=== PATIENT | female | born 1950 | race Caucasian/White ===

== ENCOUNTER 2022-11-16 16:08 | Inpatient (IN) | payer OTHER ==
[2022-11-16] MEDS ORDERED: ACETAMINOPHEN 1000 MG/100 ML BAG IVPB ONE (17:31)
[2022-11-16] MEDS ORDERED: ACETAMINOPHEN INJECTION 100 ML IVPB ONE (17:43)
[2022-11-16 18:24] LABS: BASO % 0.9 % (0-2.0); EOS % 2.7 % (0-4.5); HEMATOCRIT 32.5 % (32.4-45.2); HEMOGLOBIN 10.6 GM/dL (10.7-15.3); LYMPH % 14.5 % (8-40); MCH 29.2 pg (25.7-33.7); MCHC 32.5 g/dl (32.0-36.0); MEAN CELL VOLUME 89.9 fl (80-96); MONO % 9.6 % (3.8-10.2); NEUT % 72.3 % (42.8-82.8); PLATELET COUNT 416 10^3/uL (134-434); RBC 3.62 M/mm3 (3.60-5.2); RDW 17.3 % (11.6-15.6); WHITE BLOOD COUNT 8.6 K/mm3 (4.0-10.0)
[2022-11-16 18:42] LABS: ALBUMIN 2.7 g/dl (3.4-5.0); CALCIUM 9.5 mg/dL (8.5-10.1)
[2022-11-16 18:43] LABS: BLOOD UREA NITROGEN 17.1 mg/dL (7-18)
[2022-11-16 18:46] LABS: CREATININE 0.6 mg/dL (0.55-1.3)
[2022-11-16 18:47] LABS: BILIRUBIN,TOTAL 0.5 mg/dL (0.2-1); TOT PROT 7.5 g/dl (6.4-8.2)
[2022-11-16 22:59] LABS: CALCIUM 8.7 mg/dL (8.5-10.1)
[2022-11-16 23:00] LABS: BLOOD UREA NITROGEN 17.1 mg/dL (7-18)
[2022-11-16 23:04] LABS: CREATININE 0.7 mg/dL (0.55-1.3)
[2022-11-17] MEDS ORDERED: ACETAMINOPHEN 325 MG TABLET (FP) PO PRN (01:15)
[2022-11-17] MEDS ORDERED: ALBUTEROL SO4 HFA INHALER IH PRN (01:20)
[2022-11-17] MEDS ORDERED: REMDESIVIR 200 MG in SODIUM CHLORIDE 250 ML IVPB ONE (04:00)
[2022-11-17] MEDS ORDERED: HYDROCHLOROTHIAZIDE 12.5 MG CAPSULE (FP) PO SCH (10:00)
[2022-11-17] MEDS ORDERED: PATIENT'S OWN MEDICATION (NON-FORMULARY) (Candesartan/Hydrochlorothiazid [Candesartan-Hctz PO SCH (10:00)
[2022-11-17] MEDS ORDERED: ATENOLOL 50 MG TABLET (FP) PO SCH (10:00)
[2022-11-17 10:11] LABS: BASO % 0.7 % (0-2.0); EOS % 3.5 % (0-4.5); HEMATOCRIT 30.5 % (32.4-45.2); HEMOGLOBIN 9.8 GM/dL (10.7-15.3); LYMPH % 14.3 % (8-40); MCHC 32.2 g/dl (32.0-36.0); MEAN CELL VOLUME 90.1 fl (80-96); MEAN PLT VOLUME 6.7 fl (7.5-11.1); MONO % 10.1 % (3.8-10.2); NEUT % 71.4 % (42.8-82.8); PLATELET COUNT 268 10^3/uL (134-434); RBC 3.38 M/mm3 (3.60-5.2); RDW 17.4 % (11.6-15.6); WHITE BLOOD COUNT 6.3 K/mm3 (4.0-10.0)
[2022-11-17 10:51] LABS: BLOOD UREA NITROGEN 15.8 mg/dL (7-18); CALCIUM 8.8 mg/dL (8.5-10.1)
[2022-11-17 10:52] LABS: ALBUMIN 2.4 g/dl (3.4-5.0); MAGNESIUM 1.9 mg/dL (1.8-2.4)
[2022-11-17 10:56] LABS: BILIRUBIN,TOTAL 0.3 mg/dL (0.2-1); CREATININE 0.6 mg/dL (0.55-1.3); PHOSPHOROUS 3.6 mg/dL (2.5-4.9); TOT PROT 6.4 g/dl (6.4-8.2)
[2022-11-17 11:14] LABS: URINE APPEARANCE CLEAR; URINE BILIRUBIN NEGATIVE (NEGATIVE); URINE COLOR YELLOW; URINE GLUCOSE (UA) NEGATIVE (NEGATIVE); URINE KETONE NEGATIVE (NEGATIVE); URINE LEUK ESTERASE NEGATIVE (NEGATIVE); URINE NITRITE NEGATIVE (NEGATIVE); URINE PROTEIN NEGATIVE (NEGATIVE); URINE UROBILINOGEN 0.2 mg/dL (0.2-1.0)
[2022-11-17] MEDS: amLODIPine BESYLATE 5 MG TABLET (FP) PO SCH (11:33)
[2022-11-17] MEDS: LOSARTAN POTASSIUM 50 MG TABLET PO SCH (11:33)
[2022-11-17] MEDS: ENOXAPARIN NA (PORCINE) 40 MG/0.4 ML DISP.SYRIN SQ SCH (11:39)
[2022-11-17] MEDS: MULTIVITAMINS THER W-MINERALS COMBO TABLET (FP) PO SCH (11:39)
[2022-11-17] MEDS: ATENOLOL 50 MG TABLET (FP) PO SCH (22:53)
[2022-11-18 08:14] LABS: CARCINOEMBRYONIC ANTIGEN < 0.6 ng/mL (0.0-4.7)
[2022-11-18] MEDS: ATENOLOL 50 MG TABLET (FP) PO SCH (10:00)
[2022-11-18] MEDS: LOSARTAN POTASSIUM 50 MG TABLET PO SCH (10:25)
[2022-11-18] MEDS: REMDESIVIR 100 MG in SODIUM CHLORIDE 250 ML IVPB SCH (10:25)
[2022-11-18] MEDS: MULTIVITAMINS THER W-MINERALS COMBO TABLET (FP) PO SCH (10:27)
[2022-11-18] MEDS: amLODIPine BESYLATE 5 MG TABLET (FP) PO SCH (10:27)
[2022-11-18] MEDS: ENOXAPARIN NA (PORCINE) 40 MG/0.4 ML DISP.SYRIN SQ SCH (10:28)
[2022-11-18 12:19] VITALS: BMI 25.5
[2022-11-19 10:42] LABS: BASO % 0.5 % (0-2.0); EOS % 1.6 % (0-4.5); HEMATOCRIT 31.2 % (32.4-45.2); HEMOGLOBIN 10.6 GM/dL (10.7-15.3); LYMPH % 15.2 % (8-40); MCH 30.3 pg (25.7-33.7); MEAN CELL VOLUME 89.1 fl (80-96); MEAN PLT VOLUME 6.8 fl (7.5-11.1); MONO % 7.6 % (3.8-10.2); NEUT % 75.1 % (42.8-82.8); PLATELET COUNT 398 10^3/uL (134-434); RBC 3.51 M/mm3 (3.60-5.2); RDW 17.3 % (11.6-15.6)
[2022-11-19 10:43] LABS: INR 1.35 (0.83-1.09); PROTHROMBIN TIME (PATIENT) 15.6 SEC (9.7-13.0)
[2022-11-19] MEDS: MULTIVITAMINS THER W-MINERALS COMBO TABLET (FP) PO SCH (10:45)
[2022-11-19 10:46] LABS: ACTIVATED PTT 31.6 SECONDS (25.2-36.5)
[2022-11-19 11:37] LABS: BLOOD UREA NITROGEN 21.2 mg/dL (7-18)
[2022-11-19 11:38] LABS: CALCIUM 9.1 mg/dL (8.5-10.1)
[2022-11-19 11:39] LABS: MAGNESIUM 2.2 mg/dL (1.8-2.4)
[2022-11-19 11:40] LABS: PHOSPHOROUS 3.4 mg/dL (2.5-4.9)
[2022-11-19 11:41] LABS: CREATININE 1.1 mg/dL (0.55-1.3)
[2022-11-19] MEDS: LOSARTAN POTASSIUM 50 MG TABLET PO SCH (12:20)
[2022-11-19] MEDS: amLODIPine BESYLATE 5 MG TABLET (FP) PO SCH (12:20)
[2022-11-19] MEDS: REMDESIVIR 100 MG in SODIUM CHLORIDE 250 ML IVPB SCH (12:21)
[2022-11-19] MEDS: ATENOLOL 50 MG TABLET (FP) PO SCH (12:39)
[2022-11-20] MEDS: MULTIVITAMINS THER W-MINERALS COMBO TABLET (FP) PO SCH (09:30)
[2022-11-20] MEDS: amLODIPine BESYLATE 5 MG TABLET (FP) PO SCH (09:30)
[2022-11-20] MEDS: LOSARTAN POTASSIUM 50 MG TABLET PO SCH (09:30)
[2022-11-20] MEDS: ATENOLOL 50 MG TABLET (FP) PO SCH (09:31)
[2022-11-20] MEDS: ENOXAPARIN NA (PORCINE) 40 MG/0.4 ML DISP.SYRIN SQ SCH (09:31)
[2022-11-20 11:02] LABS: BASO % 0.5 % (0-2.0); EOS % 2.9 % (0-4.5); HEMATOCRIT 30.1 % (32.4-45.2); HEMOGLOBIN 10.1 GM/dL (10.7-15.3); LYMPH % 12.4 % (8-40); MCH 30.1 pg (25.7-33.7); MCHC 33.7 g/dl (32.0-36.0); MEAN CELL VOLUME 89.2 fl (80-96); MONO % 7.6 % (3.8-10.2); NEUT % 76.6 % (42.8-82.8); PLATELET COUNT 327 10^3/uL (134-434); RBC 3.37 M/mm3 (3.60-5.2); RDW 17.3 % (11.6-15.6); WHITE BLOOD COUNT 8.5 K/mm3 (4.0-10.0)
[2022-11-20 11:19] LABS: CALCIUM 9.1 mg/dL (8.5-10.1)
[2022-11-20 11:20] LABS: ALBUMIN 2.6 g/dl (3.4-5.0); BLOOD UREA NITROGEN 20.1 mg/dL (7-18); MAGNESIUM 2.2 mg/dL (1.8-2.4)
[2022-11-20 11:23] LABS: CREATININE 0.9 mg/dL (0.55-1.3); PHOSPHOROUS 3.4 mg/dL (2.5-4.9)
[2022-11-20 11:24] LABS: BILIRUBIN,TOTAL 0.4 mg/dL (0.2-1)
[2022-11-20 11:25] LABS: TOT PROT 6.8 g/dl (6.4-8.2)
[2022-11-20] MEDS ORDERED: PEG 3350/NA SULF BICARB CL/KCL 4000 ML SOLN.RECON PO ONE (15:32)
[2022-11-20] MEDS ORDERED: BISACODYL 5 MG TABLET.DR (FP) PO ONE (20:00)
[2022-11-20] MEDS: POLYETHYLENE GLYCOL (HEALTHYLAX) 3350 17 GM PACKET PO SCH (22:14)
[2022-11-21] MEDS: amLODIPine BESYLATE 5 MG TABLET (FP) PO SCH (09:26)
[2022-11-21] MEDS: LOSARTAN POTASSIUM 50 MG TABLET PO SCH (09:33)
[2022-11-21] MEDS: POLYETHYLENE GLYCOL (HEALTHYLAX) 3350 17 GM PACKET PO SCH ×2 (10:24→22:09)
[2022-11-21] MEDS: MULTIVITAMINS THER W-MINERALS COMBO TABLET (FP) PO SCH (10:24)
[2022-11-21] MEDS: ATENOLOL 50 MG TABLET (FP) PO SCH (10:25)
[2022-11-21 10:33] LABS: BASO % 0.5 % (0-2.0); EOS % 1.9 % (0-4.5); HEMATOCRIT 31.8 % (32.4-45.2); HEMOGLOBIN 10.6 GM/dL (10.7-15.3); LYMPH % 14.5 % (8-40); MCH 29.6 pg (25.7-33.7); MCHC 33.5 g/dl (32.0-36.0); MEAN CELL VOLUME 88.6 fl (80-96); MEAN PLT VOLUME 6.7 fl (7.5-11.1); MONO % 6.5 % (3.8-10.2); NEUT % 76.6 % (42.8-82.8); PLATELET COUNT 388 10^3/uL (134-434); RBC 3.59 M/mm3 (3.60-5.2); RDW 17.3 % (11.6-15.6); WHITE BLOOD COUNT 9.7 K/mm3 (4.0-10.0)
[2022-11-21 10:47] LABS: INR 1.43 (0.83-1.09); PROTHROMBIN TIME (PATIENT) 16.5 SEC (9.7-13.0)
[2022-11-21 11:04] LABS: BLOOD UREA NITROGEN 17.1 mg/dL (7-18)
[2022-11-21 11:07] LABS: CREATININE 0.8 mg/dL (0.55-1.3)
[2022-11-21] MEDS: PANTOPRAZOLE 40 MG TABLET PO SCH (22:09)
[2022-11-21] MEDS: MAG HYDROX/AL HYDROX/SIMETH 30 ML UNIT-DOSE CUP PO SCH (22:09)
[2022-11-22] MEDS: MULTIVITAMINS THER W-MINERALS COMBO TABLET (FP) PO SCH (09:51)
[2022-11-22] MEDS: MAG HYDROX/AL HYDROX/SIMETH 30 ML UNIT-DOSE CUP PO SCH ×2 (09:51→21:40)
[2022-11-22] MEDS: POLYETHYLENE GLYCOL (HEALTHYLAX) 3350 17 GM PACKET PO SCH ×2 (09:52→21:40)
[2022-11-22] MEDS: PANTOPRAZOLE 40 MG TABLET PO SCH ×2 (09:52→21:40)
[2022-11-22] MEDS ORDERED: PANTOPRAZOLE 40 MG TABLET PO SCH (10:00)
[2022-11-22 10:03] LABS: HEMATOCRIT 30.4 % (32.4-45.2); MCH 29.3 pg (25.7-33.7); MCHC 33.1 g/dl (32.0-36.0); MEAN CELL VOLUME 88.6 fl (80-96); PLATELET COUNT 344 10^3/uL (134-434); RBC 3.43 M/mm3 (3.60-5.2); RDW 17.4 % (11.6-15.6)
[2022-11-22 10:13] LABS: CALCIUM 8.6 mg/dL (8.5-10.1)
[2022-11-22 10:14] LABS: BLOOD UREA NITROGEN 12.6 mg/dL (7-18)
[2022-11-22 10:17] LABS: CREATININE 0.8 mg/dL (0.55-1.3)
[2022-11-22] MEDS ORDERED: PEG 3350/NA SULF BICARB CL/KCL 4000 ML SOLN.RECON PO ONE (13:00)
[2022-11-22] MEDS: metroNIDAZOLE 500 MG TABLET PO SCH ×2 (13:06→14:07)
[2022-11-22] MEDS: NEOMYCIN SO4 500 MG TABLET PO SCH ×2 (13:06→14:07)
[2022-11-22] MEDS: ATENOLOL 50 MG TABLET (FP) PO SCH (13:06)
[2022-11-22] MEDS: LOSARTAN POTASSIUM 50 MG TABLET PO SCH (13:24)
[2022-11-22] MEDS: amLODIPine BESYLATE 5 MG TABLET (FP) PO SCH (13:24)
[2022-11-23] MEDS: ATENOLOL 50 MG TABLET (FP) PO SCH (10:49)
[2022-11-23] MEDS: PANTOPRAZOLE 40 MG TABLET PO SCH ×2 (10:49→21:16)
[2022-11-23] MEDS: MAG HYDROX/AL HYDROX/SIMETH 30 ML UNIT-DOSE CUP PO SCH ×3 (10:49→21:32)
[2022-11-23] MEDS: MULTIVITAMINS THER W-MINERALS COMBO TABLET (FP) PO SCH (10:49)
[2022-11-23] MEDS: LOSARTAN POTASSIUM 50 MG TABLET PO SCH (10:49)
[2022-11-23] MEDS: POLYETHYLENE GLYCOL (HEALTHYLAX) 3350 17 GM PACKET PO SCH ×2 (10:49→21:17)
[2022-11-23] MEDS: amLODIPine BESYLATE 5 MG TABLET (FP) PO SCH (10:50)
[2022-11-23 11:28] LABS: HEMATOCRIT 31.5 % (32.4-45.2); HEMOGLOBIN 10.4 GM/dL (10.7-15.3); MCH 29.7 pg (25.7-33.7); MCHC 33.1 g/dl (32.0-36.0); MEAN CELL VOLUME 89.7 fl (80-96); PLATELET COUNT 362 10^3/uL (134-434); RBC 3.52 M/mm3 (3.60-5.2); RDW 17.2 % (11.6-15.6); WHITE BLOOD COUNT 8.8 K/mm3 (4.0-10.0)
[2022-11-23 11:52] LABS: CALCIUM 8.7 mg/dL (8.5-10.1)
[2022-11-23 11:53] LABS: BLOOD UREA NITROGEN 11.1 mg/dL (7-18); MAGNESIUM 2.2 mg/dL (1.8-2.4)
[2022-11-23 11:56] LABS: CREATININE 0.8 mg/dL (0.55-1.3)
[2022-11-24] MEDS: POLYETHYLENE GLYCOL (HEALTHYLAX) 3350 17 GM PACKET PO SCH ×3 (09:28→21:09)
[2022-11-24] MEDS: MULTIVITAMINS THER W-MINERALS COMBO TABLET (FP) PO SCH (09:28)
[2022-11-24] MEDS: MAG HYDROX/AL HYDROX/SIMETH 30 ML UNIT-DOSE CUP PO SCH ×3 (09:29→21:09)
[2022-11-24] MEDS: PANTOPRAZOLE 40 MG TABLET PO SCH ×2 (09:29→21:08)
[2022-11-24] MEDS: LOSARTAN POTASSIUM 50 MG TABLET PO SCH (11:00)
[2022-11-24] MEDS: ATENOLOL 50 MG TABLET (FP) PO SCH (11:01)
[2022-11-24 11:42] LABS: HEMATOCRIT 26.6 % (32.4-45.2); MCH 30.2 pg (25.7-33.7); MCHC 33.8 g/dl (32.0-36.0); MEAN CELL VOLUME 89.3 fl (80-96); MEAN PLT VOLUME 6.8 fl (7.5-11.1); PLATELET COUNT 276 10^3/uL (134-434); RBC 2.98 M/mm3 (3.60-5.2); RDW 17.4 % (11.6-15.6); WHITE BLOOD COUNT 7.7 K/mm3 (4.0-10.0)
[2022-11-24 12:05] LABS: BLOOD UREA NITROGEN 14.3 mg/dL (7-18); CALCIUM 8.5 mg/dL (8.5-10.1)
[2022-11-24 12:08] LABS: CREATININE 0.7 mg/dL (0.55-1.3)
[2022-11-24 20:19] LABS: HEMATOCRIT 28.3 % (32.4-45.2); HEMOGLOBIN 9.4 GM/dL (10.7-15.3); MCH 29.7 pg (25.7-33.7); MCHC 33.1 g/dl (32.0-36.0); MEAN CELL VOLUME 89.6 fl (80-96); MEAN PLT VOLUME 6.9 fl (7.5-11.1); PLATELET COUNT 348 10^3/uL (134-434); RBC 3.15 M/mm3 (3.60-5.2); RDW 17.4 % (11.6-15.6); WHITE BLOOD COUNT 8.6 K/mm3 (4.0-10.0)
[2022-11-25] MEDS ORDERED: AMINO ACIDS/PROTEIN HYDROLYS 30 ML LIQUID.PKT PO SCH (08:00)
[2022-11-25] MEDS: POLYETHYLENE GLYCOL (HEALTHYLAX) 3350 17 GM PACKET PO SCH ×4 (09:27→23:14)
[2022-11-25] MEDS: PANTOPRAZOLE 40 MG TABLET PO SCH ×2 (09:27→23:09)
[2022-11-25] MEDS: MULTIVITAMINS THER W-MINERALS COMBO TABLET (FP) PO SCH (09:27)
[2022-11-25] MEDS: MAG HYDROX/AL HYDROX/SIMETH 30 ML UNIT-DOSE CUP PO SCH ×4 (09:27→23:15)
[2022-11-25 10:37] LABS: HEMATOCRIT 29.1 % (32.4-45.2); HEMOGLOBIN 9.8 GM/dL (10.7-15.3); MCH 30.2 pg (25.7-33.7); MCHC 33.6 g/dl (32.0-36.0); MEAN CELL VOLUME 89.9 fl (80-96); MEAN PLT VOLUME 7.1 fl (7.5-11.1); PLATELET COUNT 309 10^3/uL (134-434); RBC 3.24 M/mm3 (3.60-5.2); RDW 17.6 % (11.6-15.6); WHITE BLOOD COUNT 8.6 K/mm3 (4.0-10.0)
[2022-11-25 11:07] LABS: CALCIUM 8.7 mg/dL (8.5-10.1)
[2022-11-25 11:08] LABS: BLOOD UREA NITROGEN 15.3 mg/dL (7-18)
[2022-11-25 11:11] LABS: CREATININE 0.9 mg/dL (0.55-1.3)
[2022-11-25] MEDS ORDERED: SODIUM POLYSTYRENE SULFONATE 15 GM/60 ML BOTTLE PO ONE (14:15)
[2022-11-26 09:16] LABS: ALBUMIN 2.2 g/dl (3.4-5.0); BLOOD UREA NITROGEN 14.4 mg/dL (7-18); CALCIUM 8.2 mg/dL (8.5-10.1)
[2022-11-26 09:19] LABS: CREATININE 0.7 mg/dL (0.55-1.3)
[2022-11-26 09:20] LABS: BILIRUBIN,TOTAL 0.3 mg/dL (0.2-1)
[2022-11-26] MEDS: MAG HYDROX/AL HYDROX/SIMETH 30 ML UNIT-DOSE CUP PO SCH ×4 (10:46→23:59)
[2022-11-26] MEDS: MULTIVITAMINS THER W-MINERALS COMBO TABLET (FP) PO SCH (10:47)
[2022-11-26] MEDS: POLYETHYLENE GLYCOL (HEALTHYLAX) 3350 17 GM PACKET PO SCH ×4 (10:47→23:58)
[2022-11-26] MEDS: PANTOPRAZOLE 40 MG TABLET PO SCH ×2 (10:47→21:39)
[2022-11-26] MEDS: metroNIDAZOLE 250 MG TABLET PO SCH ×3 (14:12→23:58)
[2022-11-26] MEDS: CLARITHROMYCIN 500 MG TABLET (UD) PO SCH (23:58)
[2022-11-27] MEDS: metroNIDAZOLE 250 MG TABLET PO SCH ×5 (00:05→22:29)
[2022-11-27] MEDS: CLARITHROMYCIN 500 MG TABLET (UD) PO SCH ×3 (00:06→22:30)
[2022-11-27] MEDS: MAG HYDROX/AL HYDROX/SIMETH 30 ML UNIT-DOSE CUP PO SCH ×5 (00:07→22:44)
[2022-11-27 09:55] LABS: HEMATOCRIT 23.9 % (32.4-45.2); MCHC 33.4 g/dl (32.0-36.0); MEAN CELL VOLUME 89.7 fl (80-96); PLATELET COUNT 204 10^3/uL (134-434); RBC 2.66 M/mm3 (3.60-5.2); WHITE BLOOD COUNT 5.5 K/mm3 (4.0-10.0)
[2022-11-27] MEDS: PANTOPRAZOLE 40 MG TABLET PO SCH ×3 (10:14→22:44)
[2022-11-27] MEDS: MULTIVITAMINS THER W-MINERALS COMBO TABLET (FP) PO SCH (10:14)
[2022-11-27] MEDS: POLYETHYLENE GLYCOL (HEALTHYLAX) 3350 17 GM PACKET PO SCH ×3 (10:15→22:44)
[2022-11-27 10:16] LABS: CALCIUM 8.2 mg/dL (8.5-10.1)
[2022-11-27 10:17] LABS: BLOOD UREA NITROGEN 15.7 mg/dL (7-18); MAGNESIUM 1.9 mg/dL (1.8-2.4)
[2022-11-27 10:20] LABS: CREATININE 0.8 mg/dL (0.55-1.3); PHOSPHOROUS 2.6 mg/dL (2.5-4.9)
[2022-11-28] MEDS: metroNIDAZOLE 250 MG TABLET PO SCH ×4 (05:06→22:02)
[2022-11-28] MEDS ORDERED: ONDANSETRON 4 MG/2 ML VIAL IVPUSH ONE (09:50)
[2022-11-28] MEDS: POLYETHYLENE GLYCOL (HEALTHYLAX) 3350 17 GM PACKET PO SCH ×2 (10:40→22:03)
[2022-11-28] MEDS: MAG HYDROX/AL HYDROX/SIMETH 30 ML UNIT-DOSE CUP PO SCH ×2 (10:40→22:03)
[2022-11-28] MEDS: CLARITHROMYCIN 500 MG TABLET (UD) PO SCH ×2 (10:40→22:05)
[2022-11-28] MEDS: PANTOPRAZOLE 40 MG TABLET PO SCH ×2 (10:41→22:03)
[2022-11-28] MEDS: MULTIVITAMINS THER W-MINERALS COMBO TABLET (FP) PO SCH (10:41)
[2022-11-28 11:04] LABS: HEMATOCRIT 26.1 % (32.4-45.2); HEMOGLOBIN 8.8 GM/dL (10.7-15.3); MCH 30.3 pg (25.7-33.7); MCHC 33.8 g/dl (32.0-36.0); MEAN CELL VOLUME 89.7 fl (80-96); MEAN PLT VOLUME 6.9 fl (7.5-11.1); PLATELET COUNT 261 10^3/uL (134-434); RBC 2.91 M/mm3 (3.60-5.2); RDW 17.2 % (11.6-15.6); WHITE BLOOD COUNT 8.8 K/mm3 (4.0-10.0)
[2022-11-28] MEDS: ACETAMINOPHEN 1000 MG/100 ML BAG IVPB ONE ×2 (11:25→11:51)
[2022-11-28 11:44] LABS: BLOOD UREA NITROGEN 15.8 mg/dL (7-18)
[2022-11-28 11:45] LABS: CALCIUM 8.2 mg/dL (8.5-10.1)
[2022-11-28 11:46] LABS: MAGNESIUM 1.8 mg/dL (1.8-2.4)
[2022-11-28 11:47] LABS: CREATININE 0.7 mg/dL (0.55-1.3)
[2022-11-28] MEDS: DEXTROSE 5%-0.45% SALINE 1,000 ML IV SCH ×2 (12:37→22:20)
[2022-11-28] MEDS ORDERED: ACETAMINOPHEN 325 MG TABLET (FP) PO PRN (22:46)
[2022-11-29] MEDS: POLYETHYLENE GLYCOL (HEALTHYLAX) 3350 17 GM PACKET PO SCH ×2 (05:22→10:43)
[2022-11-29] MEDS: MAG HYDROX/AL HYDROX/SIMETH 30 ML UNIT-DOSE CUP PO SCH ×2 (05:22→10:27)
[2022-11-29] MEDS: metroNIDAZOLE 250 MG TABLET PO SCH ×3 (05:23→13:46)
[2022-11-29] MEDS: MULTIVITAMINS THER W-MINERALS COMBO TABLET (FP) PO SCH (10:27)
[2022-11-29] MEDS: CLARITHROMYCIN 500 MG TABLET (UD) PO SCH (10:27)
[2022-11-29] MEDS: PANTOPRAZOLE 40 MG TABLET PO SCH (10:27)
[2022-11-29 11:19] LABS: HEMOGLOBIN 7.8 GM/dL (10.7-15.3); MCH 29.7 pg (25.7-33.7); MCHC 32.7 g/dl (32.0-36.0); MEAN CELL VOLUME 90.7 fl (80-96); MEAN PLT VOLUME 7.1 fl (7.5-11.1); PLATELET COUNT 234 10^3/uL (134-434); RBC 2.65 M/mm3 (3.60-5.2); RDW 17.5 % (11.6-15.6); WHITE BLOOD COUNT 8.2 K/mm3 (4.0-10.0)
[2022-11-29] MEDS ORDERED: ONDANSETRON 4 MG/2 ML VIAL IVPUSH ONE (11:30)
[2022-11-29 11:39] LABS: BLOOD UREA NITROGEN 15.3 mg/dL (7-18); CALCIUM 8.2 mg/dL (8.5-10.1); MAGNESIUM 1.8 mg/dL (1.8-2.4)
[2022-11-29 11:42] LABS: CREATININE 0.7 mg/dL (0.55-1.3)
[2022-11-29 11:43] LABS: PHOSPHOROUS 2.4 mg/dL (2.5-4.9)
[2022-11-29] MEDS ORDERED: SODIUM PHOSPHATE - 20 MM in SODIUM CHLORIDE 500 ML IVPB ONE (14:00)
[2022-11-29] MEDS ORDERED: CEFEPIME 1 GM in DEXTROSE 5%-WATER - 100 ML IVPB SCH ×2 (14:45→15:00)
[2022-11-29] MEDS ORDERED: CEFEPIME 1 GM in DEXTROSE 5%-WATER 100 ML IVPB SCH (15:00)
[2022-11-29] MEDS ORDERED: VANCOMYCIN 1 GRAM (PRE-DOCKED) 1,000 MG/250 ML BAG IVPB SCH (16:45)
[2022-11-29] MEDS ORDERED: VANCOMYCIN/WATER FOR INJ (PEG) 1,000 MG/200 ML BAG IVPB SCH (16:58)
[2022-11-29] MEDS ORDERED: PIPERACILLIN/TAZOB 4.5 GM 4.5 GM in DEXTROSE 5%-WATER 100 ML IVPB SCH (18:00)
[2022-11-29] MEDS ORDERED: ALBUMIN HUMAN 5% 250 ML IV SOLUTION IV ONE ×2 (18:00→18:15)
[2022-11-29] MEDS ORDERED: ROCURONIUM BROMIDE 50 MG/5 ML SYRINGE ONE ×2 (18:08→20:44)
[2022-11-29] MEDS ORDERED: PROPOFOL 20 ML ONE (18:08)
[2022-11-29] MEDS ORDERED: LIDOCAINE HCL/PF 2% SDV 5ML VIAL ONE (18:08)
[2022-11-29] MEDS ORDERED: ONDANSETRON 4 MG/2 ML VIAL ONE (18:08)
[2022-11-29] MEDS ORDERED: PHENYLEPHRINE HCL 10 MG/1 ML SINGLE DOSE VIAL ONE (18:08)
[2022-11-29] MEDS ORDERED: BUPIVACAINE HCL/PF 0.25% (2.5MG/ML) 10 ML VIAL ONE (18:30)
[2022-11-29] MEDS ORDERED: DEXAMETHASONE SOD PHOSPHATE 4 MG/1 ML VIAL ONE (18:34)
[2022-11-29] MEDS ORDERED: cefOXitin SODIUM 1 GM VIAL (RESTRICTED TO ID) IVPB ONE (20:11)
[2022-11-29] MEDS ORDERED: cefOXitin SODIUM 2 GM VIAL (RESTRICTED TO ID) IVPB ONE (20:11)
[2022-11-29] MEDS ORDERED: HYDROmorphone HCl 2 MG/ML VIAL ONE (20:25)
[2022-11-29] MEDS ORDERED: GLYCOPYRROLATE 0.2 MG/1 ML VIAL ONE (21:08)
[2022-11-29] MEDS ORDERED: NEOSTIGMINE METHYLSULFATE 0.5 MG/1 ML - 10 ML MDV ONE (21:08)
[2022-11-29] MEDS ORDERED: HEPARIN NA (PORCINE) 5,000 UNITS/ML 1ML VIAL SQ ONE (21:23)
[2022-11-29] MEDS ORDERED: ONDANSETRON 4 MG/2 ML VIAL IVPUSH PRN (22:15)
[2022-11-29] MEDS ORDERED: LACTATED RINGERS SOLUTION 1,000 ML IV SCH (22:15)
[2022-11-29] MEDS ORDERED: HYDROmorphone *PCA* 10MG/50ML DISP.SYRIN PCA SCH (22:15)
[2022-11-29] MEDS ORDERED: HYDROmorphone *PCA* 10MG/50ML DISP.SYRIN ONE (22:23)
[2022-11-29] MEDS ORDERED: ALBUTEROL SO4 HFA INHALER IH PRN (22:30)
[2022-11-29] MEDS ORDERED: SODIUM CHLORIDE 1,000 ML IV SCH (22:30)
[2022-11-29] MEDS ORDERED: AMINO ACIDS 4.25%/D5W 1,000 ML IV SCH (22:45)
[2022-11-29] MEDS ORDERED: CEFEPIME 2 GM in DEXTROSE 5%-WATER 100 ML IVPB SCH (23:00)
[2022-11-30] MEDS: CEFEPIME 2 GM in DEXTROSE 5%-WATER 100 ML IVPB SCH ×3 (05:56→21:40)
[2022-11-30] MEDS: AMINO ACIDS 4.25%/D5W 1,000 ML IV SCH ×3 (05:57→22:05)
[2022-11-30] MEDS ORDERED: LACTATED RINGERS SOLUTION 1000 ML INFUS.BAG IV ONE (06:47)
[2022-11-30 07:02] LABS: HEMATOCRIT 28.2 % (32.4-45.2); HEMOGLOBIN 9.3 GM/dL (10.7-15.3); MCH 28.6 pg (25.7-33.7); MCHC 32.9 g/dl (32.0-36.0); MEAN PLT VOLUME 7.1 fl (7.5-11.1); PLATELET COUNT 253 10^3/uL (134-434); RBC 3.24 M/mm3 (3.60-5.2); RDW 20.6 % (11.6-15.6); WHITE BLOOD COUNT 10.6 K/mm3 (4.0-10.0)
[2022-11-30 07:30] LABS: BLOOD UREA NITROGEN 15.6 mg/dL (7-18); CALCIUM 7.8 mg/dL (8.5-10.1); MAGNESIUM 1.7 mg/dL (1.8-2.4)
[2022-11-30 07:33] LABS: CREATININE 0.7 mg/dL (0.55-1.3); PHOSPHOROUS 3.4 mg/dL (2.5-4.9)
[2022-11-30] MEDS ORDERED: MAGNESIUM SULF 50% (8.12 MEQ/2 ML-1 GM VIAL) IVPB ONE (09:00)
[2022-11-30] MEDS: PANTOPRAZOLE SODIUM 40 MG VIAL IVPUSH SCH (09:36)
[2022-11-30] MEDS: HEPARIN NA (PORCINE) 5,000 UNITS/ML 1ML VIAL SQ SCH ×2 (09:36→21:40)
[2022-11-30] MEDS: ACETAMINOPHEN 1000 MG/100 ML BAG IVPB SCH ×2 (09:37→18:10)
[2022-11-30] MEDS: MUPIROCIN 2% TOPICAL OINTMENT FOR DECOLONIZATION NS SCH ×2 (10:00→21:40)
[2022-11-30] MEDS ORDERED: VANCOMYCIN/WATER FOR INJ (PEG) 1,000 MG/200 ML BAG IVPB SCH (17:00)
[2022-11-30] MEDS: CHLORHEXIDINE GLUCONATE 4% CLEANSER FOR DECOLONIZATION TP SCH (21:40)
[2022-12-01] MEDS: ACETAMINOPHEN 1000 MG/100 ML BAG IVPB SCH ×5 (00:30→23:59)
[2022-12-01] MEDS: CEFEPIME 2 GM in DEXTROSE 5%-WATER 100 ML IVPB SCH ×3 (06:00→21:30)
[2022-12-01 07:06] LABS: HEMATOCRIT 27.3 % (32.4-45.2); HEMOGLOBIN 9.2 GM/dL (10.7-15.3); MCH 29.3 pg (25.7-33.7); MCHC 33.7 g/dl (32.0-36.0); PLATELET COUNT 325 10^3/uL (134-434); RBC 3.14 M/mm3 (3.60-5.2); RDW 20.4 % (11.6-15.6); WHITE BLOOD COUNT 9.2 K/mm3 (4.0-10.0)
[2022-12-01 07:33] LABS: BLOOD UREA NITROGEN 23.2 mg/dL (7-18); CALCIUM 8.1 mg/dL (8.5-10.1); MAGNESIUM 1.9 mg/dL (1.8-2.4)
[2022-12-01 07:37] LABS: CREATININE 0.7 mg/dL (0.55-1.3)
[2022-12-01] MEDS ORDERED: SODIUM PHOSPHATE - 30 MM in SODIUM CHLORIDE 250 ML IVPB ONE (09:00)
[2022-12-01] MEDS: MUPIROCIN 2% TOPICAL OINTMENT FOR DECOLONIZATION NS SCH ×2 (09:23→21:30)
[2022-12-01] MEDS: HEPARIN NA (PORCINE) 5,000 UNITS/ML 1ML VIAL SQ SCH ×2 (09:24→21:30)
[2022-12-01] MEDS: PANTOPRAZOLE SODIUM 40 MG VIAL IVPUSH SCH (09:24)
[2022-12-01] MEDS: AMINO ACIDS 4.25%/D5W 1,000 ML IV SCH ×2 (11:16→22:42)
[2022-12-01] MEDS ORDERED: MAGNESIUM SULF 50% (8.12 MEQ/2 ML-1 GM VIAL) IVPB ONE (17:34)
[2022-12-01] MEDS ORDERED: MAGNESIUM SULF 50% (8.12 MEQ/2 ML-1 GM VIAL) ONE (18:00)
[2022-12-01] MEDS: CHLORHEXIDINE GLUCONATE 4% CLEANSER FOR DECOLONIZATION TP SCH (21:30)
[2022-12-02] MEDS ORDERED: ALPRAZolam 0.25 MG TABLET PO PRN ×2 (02:54→21:11)
[2022-12-02] MEDS: CEFEPIME 2 GM in DEXTROSE 5%-WATER 100 ML IVPB SCH ×3 (06:40→23:19)
[2022-12-02 08:13] LABS: BASO % 0.2 % (0-2.0); EOS % 0.4 % (0-4.5); HEMATOCRIT 28.9 % (32.4-45.2); HEMOGLOBIN 9.6 GM/dL (10.7-15.3); LYMPH % 20.1 % (8-40); MCH 28.8 pg (25.7-33.7); MCHC 33.2 g/dl (32.0-36.0); MEAN CELL VOLUME 86.9 fl (80-96); MEAN PLT VOLUME 6.9 fl (7.5-11.1); MONO % 5.3 % (3.8-10.2); PLATELET COUNT 332 10^3/uL (134-434); RBC 3.32 M/mm3 (3.60-5.2); RDW 20.1 % (11.6-15.6); WHITE BLOOD COUNT 5.9 K/mm3 (4.0-10.0)
[2022-12-02 08:35] LABS: BLOOD UREA NITROGEN 23.2 mg/dL (7-18); CALCIUM 7.9 mg/dL (8.5-10.1); MAGNESIUM 2.2 mg/dL (1.8-2.4)
[2022-12-02 08:36] LABS: ALBUMIN 1.9 g/dl (3.4-5.0)
[2022-12-02 08:38] LABS: CREATININE 0.6 mg/dL (0.55-1.3); PHOSPHOROUS 1.6 mg/dL (2.5-4.9)
[2022-12-02 08:40] LABS: BILIRUBIN,TOTAL 0.2 mg/dL (0.2-1); TOT PROT 5.2 g/dl (6.4-8.2)
[2022-12-02] MEDS ORDERED: SODIUM CHLORIDE IVPB ONE (08:52)
[2022-12-02] MEDS ORDERED: SODIUM PHOSPHATE IVPB ONE (08:52)
[2022-12-02] MEDS: MUPIROCIN 2% TOPICAL OINTMENT FOR DECOLONIZATION NS SCH ×2 (09:13→21:39)
[2022-12-02] MEDS: HEPARIN NA (PORCINE) 5,000 UNITS/ML 1ML VIAL SQ SCH ×2 (09:13→21:40)
[2022-12-02] MEDS: PANTOPRAZOLE SODIUM 40 MG VIAL IVPUSH SCH (09:14)
[2022-12-02] MEDS ORDERED: SODIUM PHOSPHATE - 30 MM in SODIUM CHLORIDE 250 ML IVPB ONE (12:30)
[2022-12-02] MEDS: ENALAPRILAT DIHYDRATE 1.25 MG/1 ML VIAL IVPB SCH ×3 (12:30→21:35)
[2022-12-02] MEDS: AMINO ACIDS 4.25%/D5W 1,000 ML IV SCH ×2 (14:00→23:19)
[2022-12-02] MEDS ORDERED: ALBUTEROL SO4 HFA INHALER IH PRN (21:11)
[2022-12-02] MEDS ORDERED: ACETAMINOPHEN 1000 MG/100 ML BAG IVPB PRN (21:11)
[2022-12-02] MEDS: CHLORHEXIDINE GLUCONATE 4% CLEANSER FOR DECOLONIZATION TP SCH (21:40)
[2022-12-03] MEDS: ENALAPRILAT DIHYDRATE 1.25 MG/1 ML VIAL IVPB SCH ×4 (02:04→21:06)
[2022-12-03] MEDS: CEFEPIME 2 GM in DEXTROSE 5%-WATER 100 ML IVPB SCH ×3 (06:03→22:24)
[2022-12-03 07:17] LABS: HEMATOCRIT 29.3 % (32.4-45.2); HEMOGLOBIN 9.9 GM/dL (10.7-15.3); MCH 29.2 pg (25.7-33.7); MCHC 33.7 g/dl (32.0-36.0); MEAN CELL VOLUME 86.5 fl (80-96); MEAN PLT VOLUME 6.5 fl (7.5-11.1); PLATELET COUNT 333 10^3/uL (134-434); RBC 3.39 M/mm3 (3.60-5.2); RDW 19.5 % (11.6-15.6); WHITE BLOOD COUNT 5.6 K/mm3 (4.0-10.0)
[2022-12-03 07:39] LABS: BLOOD UREA NITROGEN 20.9 mg/dL (7-18); MAGNESIUM 1.8 mg/dL (1.8-2.4)
[2022-12-03 07:42] LABS: CREATININE 0.5 mg/dL (0.55-1.3)
[2022-12-03 07:44] LABS: BILIRUBIN,TOTAL 0.2 mg/dL (0.2-1); TOT PROT 5.4 g/dl (6.4-8.2)
[2022-12-03] MEDS: PANTOPRAZOLE SODIUM 40 MG VIAL IVPUSH SCH (09:02)
[2022-12-03] MEDS: ONDANSETRON 4 MG/2 ML VIAL IVPUSH PRN (09:02)
[2022-12-03] MEDS: MUPIROCIN 2% TOPICAL OINTMENT FOR DECOLONIZATION NS SCH ×2 (09:03→21:51)
[2022-12-03] MEDS: HEPARIN NA (PORCINE) 5,000 UNITS/ML 1ML VIAL SQ SCH ×2 (09:04→21:07)
[2022-12-03] MEDS ORDERED: POTASSIUM PHOSPHATE 20 MM in SODIUM CHLORIDE 250 ML IVPB ONE (13:30)
[2022-12-03] MEDS: AMINO ACIDS 4.25%/D5W 1,000 ML IV SCH ×2 (13:54→22:24)
[2022-12-03] MEDS: COLLAGENASE CLOSTRIDIUM HIST. 30 GRAMS TUBE TP SCH (18:11)
[2022-12-03] MEDS: ZINC OXIDE 20% TOPICAL OINTMENT 30 GM TUBE TP SCH (21:07)
[2022-12-03] MEDS: CHLORHEXIDINE GLUCONATE 4% CLEANSER FOR DECOLONIZATION TP SCH (21:07)
[2022-12-04] MEDS ORDERED: ACETAMINOPHEN 500 MG TABLET (FP) PO PRN
[2022-12-04] MEDS: ENALAPRILAT DIHYDRATE 1.25 MG/1 ML VIAL IVPB SCH ×4 (02:43→21:27)
[2022-12-04] MEDS: AMINO ACIDS 4.25%/D5W 1,000 ML IV SCH ×3 (02:44→23:15)
[2022-12-04] MEDS: CEFEPIME 2 GM in DEXTROSE 5%-WATER 100 ML IVPB SCH ×3 (06:03→22:48)
[2022-12-04 06:30] LABS: HEMATOCRIT 30.5 % (32.4-45.2); HEMOGLOBIN 10.1 GM/dL (10.7-15.3); MCH 28.8 pg (25.7-33.7); MCHC 33.3 g/dl (32.0-36.0); MEAN CELL VOLUME 86.7 fl (80-96); MEAN PLT VOLUME 6.7 fl (7.5-11.1); PLATELET COUNT 406 10^3/uL (134-434); RBC 3.51 M/mm3 (3.60-5.2); RDW 19.6 % (11.6-15.6); WHITE BLOOD COUNT 7.5 K/mm3 (4.0-10.0)
[2022-12-04 07:00] LABS: CALCIUM 8.1 mg/dL (8.5-10.1)
[2022-12-04 07:02] LABS: ALBUMIN 1.9 g/dl (3.4-5.0); BLOOD UREA NITROGEN 21.6 mg/dL (7-18); MAGNESIUM 1.8 mg/dL (1.8-2.4)
[2022-12-04 07:05] LABS: BILIRUBIN,TOTAL 0.3 mg/dL (0.2-1); CREATININE 0.5 mg/dL (0.55-1.3); PHOSPHOROUS 1.7 mg/dL (2.5-4.9); TOT PROT 5.1 g/dl (6.4-8.2)
[2022-12-04] MEDS ORDERED: SODIUM PHOSPHATE - 30 MM in SODIUM CHLORIDE 250 ML IVPB ONE (07:53)
[2022-12-04] MEDS: PANTOPRAZOLE SODIUM 40 MG VIAL IVPUSH SCH (09:50)
[2022-12-04] MEDS: HEPARIN NA (PORCINE) 5,000 UNITS/ML 1ML VIAL SQ SCH ×3 (09:51→21:28)
[2022-12-04] MEDS: MUPIROCIN 2% TOPICAL OINTMENT FOR DECOLONIZATION NS SCH ×2 (09:51→21:28)
[2022-12-04] MEDS: ONDANSETRON 4 MG/2 ML VIAL IVPUSH PRN (10:14)
[2022-12-04] MEDS: ZINC OXIDE 20% TOPICAL OINTMENT 30 GM TUBE TP SCH ×2 (16:30→21:28)
[2022-12-04] MEDS: COLLAGENASE CLOSTRIDIUM HIST. 30 GRAMS TUBE TP SCH (16:30)
[2022-12-04] MEDS: CHLORHEXIDINE GLUCONATE 4% CLEANSER FOR DECOLONIZATION TP SCH (21:28)
[2022-12-05] MEDS: ENALAPRILAT DIHYDRATE 1.25 MG/1 ML VIAL IVPB SCH ×4 (02:10→21:56)
[2022-12-05] MEDS: AMINO ACIDS 4.25%/D5W 1,000 ML IV SCH ×2 (02:11→15:40)
[2022-12-05] MEDS: HEPARIN NA (PORCINE) 5,000 UNITS/ML 1ML VIAL SQ SCH ×3 (05:59→21:57)
[2022-12-05] MEDS: CEFEPIME 2 GM in DEXTROSE 5%-WATER 100 ML IVPB SCH ×2 (06:00→14:15)
[2022-12-05 08:02] LABS: HEMATOCRIT 28.1 % (32.4-45.2); HEMOGLOBIN 9.6 GM/dL (10.7-15.3); MCHC 34.2 g/dl (32.0-36.0); MEAN CELL VOLUME 87.6 fl (80-96); MEAN PLT VOLUME 6.4 fl (7.5-11.1); PLATELET COUNT 369 10^3/uL (134-434); RBC 3.21 M/mm3 (3.60-5.2); RDW 19.7 % (11.6-15.6); WHITE BLOOD COUNT 6.7 K/mm3 (4.0-10.0)
[2022-12-05 08:23] LABS: CHLORIDE 108 mmol/L (98-107); SODIUM 133 mmol/L (136-145)
[2022-12-05 08:30] LABS: ALBUMIN 1.9 g/dl (3.4-5.0); ANION GAP 4 MMOL/L (8-16); BLOOD UREA NITROGEN 23.3 mg/dL (7-18); CALCIUM 8.1 mg/dL (8.5-10.1); CO2 21 mmol/L (21-32); MAGNESIUM 1.6 mg/dL (1.8-2.4)
[2022-12-05 08:32] LABS: GLUCOSE,RANDOM 134 mg/dL (74-106)
[2022-12-05 08:35] LABS: BILIRUBIN,TOTAL 0.3 mg/dL (0.2-1); CREATININE 0.5 mg/dL (0.55-1.3); PHOSPHOROUS 1.5 mg/dL (2.5-4.9); SGOT/AST 10 U/L (15-37); TOT PROT 4.9 g/dl (6.4-8.2)
[2022-12-05 08:37] LABS: ALK PHOS 59 U/L (45-117)
[2022-12-05 09:20] LABS: SGPT/ALT < 6 U/L (13-61)
[2022-12-05] MEDS: PANTOPRAZOLE SODIUM 40 MG VIAL IVPUSH SCH (09:42)
[2022-12-05] MEDS: COLLAGENASE CLOSTRIDIUM HIST. 30 GRAMS TUBE TP SCH (11:00)
[2022-12-05] MEDS: ZINC OXIDE 20% TOPICAL OINTMENT 30 GM TUBE TP SCH ×2 (11:00→21:57)
[2022-12-05] MEDS ORDERED: MAGNESIUM SULF 50% (8.12 MEQ/2 ML-1 GM VIAL) IVPB ONE (16:26)
[2022-12-05] MEDS ORDERED: SODIUM PHOSPHATE - 30 MM in SODIUM CHLORIDE 250 ML IVPB ONE (17:30)
[2022-12-05] MEDS: CHLORHEXIDINE GLUCONATE 4% CLEANSER FOR DECOLONIZATION TP SCH (21:57)
[2022-12-06] MEDS: ENALAPRILAT DIHYDRATE 1.25 MG/1 ML VIAL IVPB SCH ×3 (03:55→14:11)
[2022-12-06] MEDS: AMINO ACIDS 4.25%/D5W 1,000 ML IV SCH ×3 (04:57→22:45)
[2022-12-06] MEDS: HEPARIN NA (PORCINE) 5,000 UNITS/ML 1ML VIAL SQ SCH ×3 (06:20→22:41)
[2022-12-06 08:17] LABS: HEMATOCRIT 27.4 % (32.4-45.2); HEMOGLOBIN 9.4 GM/dL (10.7-15.3); MCH 30.1 pg (25.7-33.7); MCHC 34.3 g/dl (32.0-36.0); MEAN CELL VOLUME 87.6 fl (80-96); MEAN PLT VOLUME 6.8 fl (7.5-11.1); PLATELET COUNT 371 10^3/uL (134-434); RBC 3.13 M/mm3 (3.60-5.2); RDW 19.2 % (11.6-15.6); WHITE BLOOD COUNT 5.4 K/mm3 (4.0-10.0)
[2022-12-06 08:18] LABS: CALCIUM 7.8 mg/dL (8.5-10.1)
[2022-12-06 08:19] LABS: ALBUMIN 1.9 g/dl (3.4-5.0); BLOOD UREA NITROGEN 20.2 mg/dL (7-18)
[2022-12-06 08:22] LABS: CREATININE 0.4 mg/dL (0.55-1.3); PHOSPHOROUS 2.1 mg/dL (2.5-4.9)
[2022-12-06 08:24] LABS: TOT PROT 4.9 g/dl (6.4-8.2)
[2022-12-06 08:34] LABS: BILIRUBIN,TOTAL 0.3 mg/dL (0.2-1)
[2022-12-06] MEDS: ZINC OXIDE 20% TOPICAL OINTMENT 30 GM TUBE TP SCH ×2 (10:41→22:41)
[2022-12-06] MEDS: COLLAGENASE CLOSTRIDIUM HIST. 30 GRAMS TUBE TP SCH (10:41)
[2022-12-06] MEDS: PANTOPRAZOLE SODIUM 40 MG VIAL IVPUSH SCH (10:41)
[2022-12-06] MEDS ORDERED: ONDANSETRON 4 MG/2 ML VIAL IVPUSH PRN (15:45)
[2022-12-06] MEDS ORDERED: ALBUTEROL SO4 HFA INHALER IH PRN (15:45)
[2022-12-06] MEDS ORDERED: ENALAPRILAT DIHYDRATE 1.25 MG/1 ML VIAL IVPB SCH (21:00)
[2022-12-06] MEDS ORDERED: CHLORHEXIDINE GLUCONATE 4% CLEANSER FOR DECOLONIZATION TP SCH (22:00)
[2022-12-07] MEDS: HEPARIN NA (PORCINE) 5,000 UNITS/ML 1ML VIAL SQ SCH ×2 (06:34→14:20)
[2022-12-07 09:08] LABS: HEMATOCRIT 26.1 % (32.4-45.2); HEMOGLOBIN 9.1 GM/dL (10.7-15.3); MCH 30.1 pg (25.7-33.7); MCHC 34.8 g/dl (32.0-36.0); MEAN CELL VOLUME 86.5 fl (80-96); MEAN PLT VOLUME 6.6 fl (7.5-11.1); PLATELET COUNT 322 10^3/uL (134-434); RBC 3.01 M/mm3 (3.60-5.2); RDW 19.6 % (11.6-15.6); WHITE BLOOD COUNT 4.9 K/mm3 (4.0-10.0)
[2022-12-07 09:46] LABS: ALBUMIN 1.9 g/dl (3.4-5.0); BLOOD UREA NITROGEN 18.8 mg/dL (7-18); MAGNESIUM 1.8 mg/dL (1.8-2.4)
[2022-12-07 09:49] LABS: PHOSPHOROUS 1.6 mg/dL (2.5-4.9)
[2022-12-07 09:50] LABS: BILIRUBIN,TOTAL 0.3 mg/dL (0.2-1); CREATININE 0.4 mg/dL (0.55-1.3)
[2022-12-07] MEDS: PANTOPRAZOLE SODIUM 40 MG VIAL IVPUSH SCH (11:36)
[2022-12-07] MEDS: ZINC OXIDE 20% TOPICAL OINTMENT 30 GM TUBE TP SCH ×2 (11:37→22:26)
[2022-12-07] MEDS: COLLAGENASE CLOSTRIDIUM HIST. 30 GRAMS TUBE TP SCH (13:19)
[2022-12-07] MEDS: AMINO ACIDS 4.25%/D5W 1,000 ML IV SCH (13:20)
[2022-12-07] MEDS ORDERED: SODIUM PHOSPHATE - 30 MM in SODIUM CHLORIDE 500 ML IVPB ONE (13:30)
[2022-12-07 20:41] LABS: BF WBC & OTHER NUCLEATED CELLS 1361 /mm3
[2022-12-07 21:13] LABS: BODY FLUID MONOCYTE 6 %
[2022-12-08] MEDS: AMINO ACIDS 4.25%/D5W 1,000 ML IV SCH ×4 (00:16→22:04)
[2022-12-08] MEDS: HEPARIN NA (PORCINE) 5,000 UNITS/ML 1ML VIAL SQ SCH ×3 (06:24→21:21)
[2022-12-08 08:43] LABS: HEMATOCRIT 26.6 % (32.4-45.2); HEMOGLOBIN 9.1 GM/dL (10.7-15.3); MCH 29.6 pg (25.7-33.7); MCHC 34.2 g/dl (32.0-36.0); MEAN CELL VOLUME 86.6 fl (80-96); MEAN PLT VOLUME 6.9 fl (7.5-11.1); PLATELET COUNT 335 10^3/uL (134-434); RBC 3.07 M/mm3 (3.60-5.2); RDW 19.6 % (11.6-15.6)
[2022-12-08 09:15] LABS: ALBUMIN 1.8 g/dl (3.4-5.0); BLOOD UREA NITROGEN 16.9 mg/dL (7-18); MAGNESIUM 2.1 mg/dL (1.8-2.4)
[2022-12-08 09:18] LABS: CREATININE 0.3 mg/dL (0.55-1.3); PHOSPHOROUS 2.3 mg/dL (2.5-4.9)
[2022-12-08 09:21] LABS: BILIRUBIN,TOTAL 0.3 mg/dL (0.2-1)
[2022-12-08] MEDS: PANTOPRAZOLE SODIUM 40 MG VIAL IVPUSH SCH (10:21)
[2022-12-08] MEDS: ZINC OXIDE 20% TOPICAL OINTMENT 30 GM TUBE TP SCH ×2 (10:26→21:30)
[2022-12-08] MEDS: COLLAGENASE CLOSTRIDIUM HIST. 30 GRAMS TUBE TP SCH (10:26)
[2022-12-08] MEDS ORDERED: NAPH,MB-DB/K PH,MBDB POWDER PACKET PO ONE (13:51)
[2022-12-08] MEDS: ACETAMINOPHEN 500 MG TABLET (FP) PO PRN (21:22)
[2022-12-09] MEDS: HEPARIN NA (PORCINE) 5,000 UNITS/ML 1ML VIAL SQ SCH ×3 (06:04→22:54)
[2022-12-09] MEDS: PANTOPRAZOLE SODIUM 40 MG VIAL IVPUSH SCH (09:23)
[2022-12-09] MEDS: ACETAMINOPHEN 500 MG TABLET (FP) PO PRN (09:23)
[2022-12-09] MEDS: COLLAGENASE CLOSTRIDIUM HIST. 30 GRAMS TUBE TP SCH (09:25)
[2022-12-09] MEDS: ZINC OXIDE 20% TOPICAL OINTMENT 30 GM TUBE TP SCH ×2 (09:27→21:06)
[2022-12-09 09:36] LABS: HEMATOCRIT 27.1 % (32.4-45.2); HEMOGLOBIN 9.2 GM/dL (10.7-15.3); MCH 29.9 pg (25.7-33.7); MCHC 34.1 g/dl (32.0-36.0); MEAN CELL VOLUME 87.7 fl (80-96); PLATELET COUNT 309 10^3/uL (134-434); RBC 3.08 M/mm3 (3.60-5.2); WHITE BLOOD COUNT 4.7 K/mm3 (4.0-10.0)
[2022-12-09 10:10] LABS: ALBUMIN 1.9 g/dl (3.4-5.0); BLOOD UREA NITROGEN 19.2 mg/dL (7-18); CALCIUM 8.1 mg/dL (8.5-10.1); MAGNESIUM 1.7 mg/dL (1.8-2.4)
[2022-12-09 10:13] LABS: CREATININE 0.4 mg/dL (0.55-1.3); PHOSPHOROUS 1.9 mg/dL (2.5-4.9)
[2022-12-09 10:15] LABS: BILIRUBIN,TOTAL 0.3 mg/dL (0.2-1)
[2022-12-09] MEDS: AMINO ACIDS 4.25%/D5W 1,000 ML IV SCH (10:53)
[2022-12-10] MEDS: HEPARIN NA (PORCINE) 5,000 UNITS/ML 1ML VIAL SQ SCH ×3 (05:10→22:27)
[2022-12-10] MEDS ORDERED: MAGNESIUM SULF 50% (8.12 MEQ/2 ML-1 GM VIAL) IVPB ONE (07:11)
[2022-12-10 07:59] LABS: HEMOGLOBIN 8.9 GM/dL (10.7-15.3); MCH 29.8 pg (25.7-33.7); MCHC 34.3 g/dl (32.0-36.0); MEAN CELL VOLUME 86.9 fl (80-96); MEAN PLT VOLUME 6.8 fl (7.5-11.1); PLATELET COUNT 320 10^3/uL (134-434); RBC 2.99 M/mm3 (3.60-5.2); RDW 20.4 % (11.6-15.6); WHITE BLOOD COUNT 5.1 K/mm3 (4.0-10.0)
[2022-12-10 08:30] LABS: CALCIUM 8.2 mg/dL (8.5-10.1)
[2022-12-10 08:31] LABS: BLOOD UREA NITROGEN 15.7 mg/dL (7-18); MAGNESIUM 1.8 mg/dL (1.8-2.4)
[2022-12-10 08:33] LABS: CREATININE 0.3 mg/dL (0.55-1.3); PHOSPHOROUS 2.2 mg/dL (2.5-4.9)
[2022-12-10 08:35] LABS: BILIRUBIN,TOTAL 0.5 mg/dL (0.2-1)
[2022-12-10] MEDS: NAPH,MB-DB/K PH,MBDB POWDER PACKET PO SCH (09:17)
[2022-12-10] MEDS: POTASSIUM CHLORIDE TABS 20 MEQ TABLET.ER (FP) PO SCH (09:17)
[2022-12-10] MEDS: PANTOPRAZOLE 40 MG TABLET PO SCH (09:18)
[2022-12-10] MEDS: COLLAGENASE CLOSTRIDIUM HIST. 30 GRAMS TUBE TP SCH (09:18)
[2022-12-10] MEDS: ZINC OXIDE 20% TOPICAL OINTMENT 30 GM TUBE TP SCH ×2 (09:18→22:36)
[2022-12-10] MEDS: CLARITHROMYCIN 500 MG TABLET (UD) PO SCH ×2 (09:25→22:39)
[2022-12-10] MEDS: metroNIDAZOLE 250 MG TABLET PO SCH ×2 (14:05→22:27)
[2022-12-10] MEDS: LACTOBACILLUS ACIDOPHILUS 1 TABLET PO SCH (14:05)
[2022-12-11] MEDS: metroNIDAZOLE 250 MG TABLET PO SCH ×4 (07:25→22:36)
[2022-12-11] MEDS: HEPARIN NA (PORCINE) 5,000 UNITS/ML 1ML VIAL SQ SCH ×3 (07:26→22:36)
[2022-12-11] MEDS: ACETAMINOPHEN 500 MG TABLET (FP) PO PRN (07:59)
[2022-12-11] MEDS: NAPH,MB-DB/K PH,MBDB POWDER PACKET PO SCH (09:44)
[2022-12-11] MEDS: CLARITHROMYCIN 500 MG TABLET (UD) PO SCH ×2 (09:44→22:35)
[2022-12-11] MEDS: POTASSIUM CHLORIDE TABS 20 MEQ TABLET.ER (FP) PO SCH (09:44)
[2022-12-11] MEDS: LACTOBACILLUS ACIDOPHILUS 1 TABLET PO SCH (09:44)
[2022-12-11] MEDS: PANTOPRAZOLE 40 MG TABLET PO SCH (09:44)
[2022-12-11] MEDS: ZINC OXIDE 20% TOPICAL OINTMENT 30 GM TUBE TP SCH ×2 (09:45→22:36)
[2022-12-11] MEDS: COLLAGENASE CLOSTRIDIUM HIST. 30 GRAMS TUBE TP SCH (09:45)
[2022-12-11 10:14] LABS: HEMATOCRIT 25.6 % (32.4-45.2); HEMOGLOBIN 8.6 GM/dL (10.7-15.3); MCH 29.7 pg (25.7-33.7); MCHC 33.7 g/dl (32.0-36.0); MEAN CELL VOLUME 88.1 fl (80-96); MEAN PLT VOLUME 7.6 fl (7.5-11.1); PLATELET COUNT 317 10^3/uL (134-434); RBC 2.91 M/mm3 (3.60-5.2); RDW 20.2 % (11.6-15.6); WHITE BLOOD COUNT 4.4 K/mm3 (4.0-10.0)
[2022-12-11 10:39] LABS: BLOOD UREA NITROGEN 10.9 mg/dL (7-18)
[2022-12-11 10:40] LABS: CALCIUM 8.1 mg/dL (8.5-10.1)
[2022-12-11 10:41] LABS: MAGNESIUM 1.9 mg/dL (1.8-2.4)
[2022-12-11 10:43] LABS: PHOSPHOROUS 2.2 mg/dL (2.5-4.9)
[2022-12-11 10:44] LABS: CREATININE 0.4 mg/dL (0.55-1.3)
[2022-12-11 10:45] LABS: BILIRUBIN,TOTAL 0.4 mg/dL (0.2-1); TOT PROT 5.2 g/dl (6.4-8.2)
[2022-12-11] MEDS ORDERED: POTASSIUM PHOSPHATE 20 MM in SODIUM CHLORIDE 250 ML IVPB ONE (14:00)
[2022-12-11 14:07] LABS: BODY FLUID ALBUMIN 1.4 g/dL (Not Estab.)
[2022-12-12] MEDS: HEPARIN NA (PORCINE) 5,000 UNITS/ML 1ML VIAL SQ SCH ×3 (06:18→21:28)
[2022-12-12] MEDS: metroNIDAZOLE 250 MG TABLET PO SCH ×3 (09:12→21:28)
[2022-12-12] MEDS: LACTOBACILLUS ACIDOPHILUS 1 TABLET PO SCH (09:12)
[2022-12-12] MEDS: POTASSIUM CHLORIDE TABS 20 MEQ TABLET.ER (FP) PO SCH (09:13)
[2022-12-12] MEDS: CLARITHROMYCIN 500 MG TABLET (UD) PO SCH ×2 (09:13→21:27)
[2022-12-12] MEDS: NAPH,MB-DB/K PH,MBDB POWDER PACKET PO SCH (09:14)
[2022-12-12] MEDS: PANTOPRAZOLE 40 MG TABLET PO SCH (09:14)
[2022-12-12] MEDS: ZINC OXIDE 20% TOPICAL OINTMENT 30 GM TUBE TP SCH ×2 (09:15→21:28)
[2022-12-12] MEDS: COLLAGENASE CLOSTRIDIUM HIST. 30 GRAMS TUBE TP SCH (09:16)
[2022-12-12 10:00] LABS: HEMATOCRIT 27.8 % (32.4-45.2); HEMOGLOBIN 9.6 GM/dL (10.7-15.3); MCH 30.4 pg (25.7-33.7); MCHC 34.5 g/dl (32.0-36.0); MEAN CELL VOLUME 88.3 fl (80-96); MEAN PLT VOLUME 7.4 fl (7.5-11.1); PLATELET COUNT 328 10^3/uL (134-434); RBC 3.15 M/mm3 (3.60-5.2); RDW 20.5 % (11.6-15.6); WHITE BLOOD COUNT 4.3 K/mm3 (4.0-10.0)
[2022-12-12 10:32] LABS: ALBUMIN 2.4 g/dl (3.4-5.0); CALCIUM 8.7 mg/dL (8.5-10.1)
[2022-12-12 10:33] LABS: MAGNESIUM 2.2 mg/dL (1.8-2.4)
[2022-12-12 10:35] LABS: CREATININE 0.4 mg/dL (0.55-1.3); PHOSPHOROUS 2.3 mg/dL (2.5-4.9)
[2022-12-12 10:36] LABS: BILIRUBIN,TOTAL 0.5 mg/dL (0.2-1); TOT PROT 5.9 g/dl (6.4-8.2)
[2022-12-12] MEDS ORDERED: SODIUM PHOSPHATE - 30 MM in SODIUM CHLORIDE 500 ML IVPB ONE (13:48)
[2022-12-12] MEDS ORDERED: NAPH,MB-DB/K PH,MBDB POWDER PACKET PO ONE (14:59)
[2022-12-12 15:50] VITALS: BP 140/85; PULSE 86; RESP 20; TEMP 97.6
== END 2022-12-12 21:53 | disposition home or self-care (01) | DRG 221 ==
LOC: JER 16:08 → JERBED 21:19 → J5S 11-17 04:58 → JICU 11-29 22:09 → J2W 12-02 20:40 → J8W 12-06 15:37
PROVIDERS: ADMIT Internal Medicine; ATTEND Internal Medicine
PROC: XW033E5 Introduction of Remdesivir Anti-infective into Peripheral Vein, Percutaneous Approach, New Technology Group 5 (ICD-10-PCS; 2022-11-16)
PROC: 0DB98ZX Excision of Duodenum, Via Natural or Artificial Opening Endoscopic, Diagnostic (ICD-10-PCS; 2022-11-21)
PROC: 0DB68ZX Excision of Stomach, Via Natural or Artificial Opening Endoscopic, Diagnostic (ICD-10-PCS; 2022-11-21)
PROC: 0DBE8ZX Excision of Large Intestine, Via Natural or Artificial Opening Endoscopic, Diagnostic (ICD-10-PCS; 2022-11-21)
PROC: 0DB80ZZ Excision of Small Intestine, Open Approach (ICD-10-PCS; 2022-11-29)
PROC: 0WBF0ZZ Excision of Abdominal Wall, Open Approach (ICD-10-PCS; 2022-11-29)
PROC: 30233N1 Transfusion of Nonautologous Red Blood Cells into Peripheral Vein, Percutaneous Approach (ICD-10-PCS; 2022-11-29)
PROC: 0DTF0ZZ Resection of Right Large Intestine, Open Approach (ICD-10-PCS; principal; 2022-11-29 18:00)
PROC: 0W9G3ZZ Drainage of Peritoneal Cavity, Percutaneous Approach (ICD-10-PCS; 2022-12-07)
DX: C18.4 Malignant neoplasm of transverse colon (principal); U07.1 COVID-19; K25.4 Chronic or unspecified gastric ulcer with hemorrhage; K76.6 Portal hypertension; K56.600 Partial intestinal obstruction, unspecified as to cause; I47.1 Supraventricular tachycardia; R18.8 Other ascites; K56.7 Ileus, unspecified; K91.89 Other postprocedural complications and disorders of digestive system; I47.20 Ventricular tachycardia, unspecified; D62 Acute posthemorrhagic anemia; K74.60 Unspecified cirrhosis of liver; J45.909 Unspecified asthma, uncomplicated; I10 Essential (primary) hypertension; E11.9 Type 2 diabetes mellitus without complications; M48.061 Spinal stenosis, lumbar region without neurogenic claudication; Y83.9 Surgical procedure, unspecified as the cause of abnormal reaction of the patient, or of later complication, without mention of misadventure at the time of the procedure; E83.39 Other disorders of phosphorus metabolism; Z88.0 Allergy status to penicillin; B96.81 Helicobacter pylori [H. pylori] as the cause of diseases classified elsewhere; K29.50 Unspecified chronic gastritis without bleeding; K57.30 Diverticulosis of large intestine without perforation or abscess without bleeding; K64.8 Other hemorrhoids
CPT/HCPCS: 0241U-QW; 36415; 71045-TC-FY; 71250-TC; 72131-TC; 74019-TC-FY; 74177-TC; 74178-TC; 74183-TC; 76705-TC; 76942-TC; 80048; 80053; 81003; 82042; 82105; 82150; 82272; 82378; 82465; 82945; 83036; 83615; 83735; 83986; 84100; 84157; 84478; 84703; 85025; 85027; 85610; 85730; 86140; 86301; 86704; 86708; 86803; 86850; 86900; 86901; 86922; 87040; 87070; 87075; 87102; 87116; 87205; 87206; 87210; 87324; 87340; 87449; 87517; 88108; 88302-TC; 88305-TC; 88309-TC; 88341-TC; 93005; 93010; 93306-TC; 94010; 94760; 97116-GP; 97162-GP; 99285-25; A9579; C9399; C9803-CS; E0194; J1644; P9058; Q9967; U0003; U0005

== ENCOUNTER 2023-12-11 22:54 | Emergency (ER) | payer OTHER ==
[2023-12-11 23:05] VITALS: BP 168/69; PULSE 85; RESP 17; TEMP 98.6; BMI 34.0
== END 2023-12-12 02:53 | disposition home or self-care (01) ==
LOC: JER 22:54
DX: R04.0 Epistaxis (principal); R05.3 Chronic cough; R07.89 Other chest pain; Z20.822 Contact with and (suspected) exposure to COVID-19
CPT/HCPCS: 0241U-QW; 71046-TC-FY; 93005; 93010; 99285-25

== ENCOUNTER 2024-09-23 16:09 | Emergency (ER) | payer OTHER ==
[2024-09-23 16:24] VITALS: BMI 31.4
[2024-09-23 18:45] LABS: BASO % 0.5 % (0-2.0); EOS % 1.9 % (0-4.5); HEMATOCRIT 29.4 % (32.4-45.2); HEMOGLOBIN 9.7 GM/dL (10.7-15.3); LYMPH % 23.7 % (8-40); MCH 28.8 pg (25.7-33.7); MCHC 32.9 g/dl (32.0-36.0); MEAN CELL VOLUME 87.5 fl (80-96); MEAN PLT VOLUME 7.1 fl (7.5-11.1); MONO % 8.7 % (3.8-10.2); NEUT % 65.2 % (42.8-82.8); PLATELET COUNT 219 10^3/uL (134-434); RBC 3.36 M/mm3 (3.60-5.2); RDW 14.8 % (11.6-15.6); WHITE BLOOD COUNT 5.4 K/mm3 (4.0-10.0)
[2024-09-23 19:01] LABS: POTASSIUM 4.5 mmol/L (3.5-5.1)
[2024-09-23 19:03] LABS: ALBUMIN 3.7 g/dl (3.4-5.0); BLOOD UREA NITROGEN 24.6 mg/dL (7-18); CALCIUM 9.5 mg/dL (8.5-10.1)
[2024-09-23 19:06] LABS: CREATININE 1.1 mg/dL (0.55-1.3)
[2024-09-23 19:08] LABS: BILIRUBIN,TOTAL 0.3 mg/dL (0.2-1); TOT PROT 7.5 g/dl (6.4-8.2)
[2024-09-23 19:11] LABS: N-TERMINAL BNP 106.2 pg/ml (5-450)
[2024-09-23 20:48] VITALS: PULSE 95
[2024-09-23 21:18] VITALS: BP 139/74; RESP 19; TEMP 97.9
== END 2024-09-23 21:51 | disposition home or self-care (01) ==
LOC: JER 16:09
DX: R21 Rash and other nonspecific skin eruption (principal); R60.0 Localized edema; M79.89 Other specified soft tissue disorders
CPT/HCPCS: 36415; 71045-TC-FY; 80053; 83880; 84484; 85025; 93005; 93010; 99285-25